=== PATIENT | female | born 1945 | race Caucasian/White ===

== ENCOUNTER 2022-02-13 15:49 | Emergency (ER) | payer MEDICARE, BC ==
[2022-02-13 16:42] LABS: BASOPHILS # (AUTO) 0.1 10^3/uL (0.0-0.1); BASOPHILS % (AUTO) 0.6 %; EOSINOPHILS % (AUTO) 0.2 %; HCT - HEMATOCRIT 43.8 % (37.0-47.0); HGB - HEMOGLOBIN 14.7 g/dL (12.0-16.0); LYMPHOCYTES % (AUTO) 10.1 %; MEAN CORPUSCULAR HEMOGLOBIN 30.8 pg (27.0-31.0); MEAN CORPUSCULAR HGB CONC 33.6 g/dL (32.0-36.0); MEAN CORPUSCULAR VOLUME 91.8 fL (81.0-99.0); MEAN PLATELET VOLUME 9.6 fL (7.9-10.8); MONOCYTES # (AUTO) 0.4 10^3/uL (0.0-1.0); MONOCYTES % (AUTO) 4.2 %; NEUTROPHILS # (AUTO) 8.5 10^3/uL (1.5-6.6); NEUTROPHILS % (AUTO) 84.4 %; PLT - PLATELET COUNT 176 10^3/uL (130-450); RED BLOOD COUNT 4.77 10^6/uL (4.20-5.40); RED CELL DISTRIBUTION WIDTH 13.2 % (12.0-15.0); WHITE BLOOD COUNT 10.1 x10^3/uL (4.8-10.8)
[2022-02-13 16:55] LABS: BILIRUBIN,URINE NEGATIVE (NEGATIVE); GLUCOSE, URINE (UA) NEGATIVE (NEGATIVE); KETONES,URINE (UA) 15 mg/dL (NEGATIVE); LEUKOCYTE ESTERASE, URINE NEGATIVE (NEGATIVE); NITRITE,URINE NEGATIVE (NEGATIVE); OCCULT BLOOD,URINE NEGATIVE (NEGATIVE); PH,URINE 8.5 PH (5.0-7.5); PROTEIN,URINE NEGATIVE (NEGATIVE); UROBILINOGEN,URINE 0.2 (NORMAL) E.U./dL (NORMAL)
[2022-02-13 16:55] LABS: ALBUMIN 4.4 g/dL (3.2-5.5); ALBUMIN/GLOBULIN RATIO 1.6 (1.0-2.2); BILIRUBIN,TOTAL 2.2 mg/dL (0.2-1.0); CALCIUM 10.1 mg/dL (8.5-10.3); CREATININE 0.7 mg/dL (0.4-1.0); TOTAL PROTEIN 7.1 g/dL (6.7-8.2)
[2022-02-13 16:59] LABS: CLARITY,URINE HAZY (CLEAR)
[2022-02-13 17:13] LABS: AMORPHOUS SEDIMENT,UR Marked /LPF; BACTERIA,URINE Rare /HPF (None Seen); RBC,URINE None Seen /HPF (0-5); SQUAMOUS EPITHELIAL CELL,UR RARE Squamous (<= Few); WBC,URINE 0-3 /HPF (0-5)
[2022-02-13] MEDS ORDERED: IOVERSOL 320 100 ML VIAL IVP ONE ×2 (17:34→20:24)
--- NOTE | 2022-02-13 18:00 | ED Physician Documentation ---
History of Present Illness - Stated complaint Stated Complaint: ABD PX - Chief complaint Chief Complaint: Abd Pain - History obtained from History obtained from: Patient - History of Present Illness Pain level max: 0 Pain level now: 0 - Additonal information Additional information: Patient is a 76-year-old female who presents to the emergency department with abdominal pain today. She states emesis x1, diarrhea x1. She states she has a history of recurrent bowel obstructions. She states she is concerned that she has a bowel obstruction. Her general surgeon is at [facility]. She states she was last admitted for a bowel obstruction in October. Has never needed surgery for her bowel obstructions. Review of Systems Constitutional: denies: Fever, Chills Nose: denies: Rhinorrhea / runny nose, Congestion Throat: denies: Sore throat Cardiac: denies: Chest pain / pressure, Palpitations Respiratory: denies: Dyspnea, Cough GI: reports: Abdominal Pain (crampy, lower), Vomiting, Diarrhea Skin: denies: Rash Musculoskeletal: denies: Neck pain, Back pain Neurologic: denies: Headache PD PAST MEDICAL HISTORY - Past Medical History Past Medical History: No Endocrine/Autoimmune: None - Past Surgical History General: Bowel surgery - Present Medications Home Medications: Ambulatory Orders Medication Instructions Recorded Confirmed Apixaban [Eliquis] 5 mg PO BID 11/22/21 11/22/21 Docusate Sodium 100Mg Capsule 100 mg PO DAILY 11/22/21 11/22/21 [Colace 100Mg Capsule] Mecobalamin [B12 Active] 1,000 mcg PO 11/22/21 - Allergies Allergies/Adverse Reactions: Allergies Allergy/AdvReac Type Severity Reaction Status Date / Time No Known Allergies Allergy Unknown Verified 02/13/22 16:09 - Living Situation Living Arrangement: reports: At home - Social History Smoking Status: Never smoker PD ED PE NORMAL - Vitals Vital signs reviewed: Yes - General General: Alert and oriented X 3, No acute distress - HEENT HEENT: PERRL, Moist mucous membranes - Neck Neck: Supple, no meningeal sign - Cardiac Cardiac: RRR, Strong equal pulses - Respiratory Respiratory: No respiratory distress, Clear bilaterally - Abdomen Abdomen: Normal bowel sounds, Soft, Non tender, Non distended - Derm Derm: Warm and dry - Extremities Extremities: No edema - Neuro Neuro: Alert and oriented X 3 - Psych Psych: Normal mood, Normal affect Results - Vitals Vitals: Vital Signs - 24 hr 02/13/22 02/13/22 02/13/22 16:09 16:14 18:14 Temperature 36.3 C L 36.3 C L Heart Rate 68 68 66 Respiratory 18 18 16 Rate Blood Pressure 157/82 H 157/82 H 165/95 H O2 Saturation 98 98 100 02/13/22 02/13/22 20:00 21:04 Temperature 36.5 C Heart Rate 64 62 Respiratory 16 16 Rate Blood Pressure 160/94 H 150/88 H O2 Saturation 99 100 Oxygen O2 Source Room air - Labs Labs: Laboratory Tests 02/13/22 02/13/22 02/13/22 16:25 16:37 16:37 WBC 10.1 RBC 4.77 Hgb 14.7 Hct 43.8 MCV 91.8 MCH 30.8 MCHC 33.6 RDW 13.2 Plt Count 176 MPV 9.6 Neut # (Auto) 8.5 H Lymph # (Auto) 1.0 L Grainger # (Auto) 0.4 Eos # (Auto) 0.0 Baso # (Auto) 0.1 Absolute Nucleated RBC 0.00 Nucleated RBC % 0.0 Sodium 134 L Potassium 4.0 Chloride 95 L Carbon Dioxide 29 Anion Gap 10.0 BUN 11 Creatinine 0.7 Estimated GFR (MDRD) 82 L Glucose 145 H Calcium 10.1 Total Bilirubin 2.2 H AST 19 ALT 16 Alkaline Phosphatase 39 L Total Protein 7.1 Albumin 4.4 Globulin 2.7 Albumin/Globulin Ratio 1.6 Lipase 25 Urine Color YELLOW Urine Clarity HAZY Urine pH 8.5 H Ur Specific [place] 1.015 Urine Protein NEGATIVE Urine Glucose (UA) NEGATIVE Urine Ketones 15 H Urine Occult Blood NEGATIVE Urine Nitrite NEGATIVE Urine Bilirubin NEGATIVE Urine Urobilinogen 0.2 (NORMAL) Ur Leukocyte Esterase NEGATIVE Urine RBC None Seen Urine WBC 0-3 Ur Squamous Epith Cells RARE Squamous Amorphous Sediment Marked Urine Bacteria Rare Ur Microscopic Review INDICATED Urine Culture Comments NOT INDICATED - Rads (name of study) CT abd/pelvis Radiology: Final report received, See rad report PD MEDICAL DECISION MAKING - ED course Complexity details: reviewed results, re-evaluated patient, considered differential, d/w patient ED course: 76-year-old female with what appears to be a gastroenteritis on CT. Does not appear consistent with bowel obstruction. Pain resolved in the emergency department. Tolerating p.o. without difficulty. We will have her follow-up with her doctor for further care. Patient is well-appearing, nontoxic. Afebrile. Lucent lesions in the osseous structures are consistent with her history of multiple myeloma. Patient counseled regarding signs and symptoms for which I believe and urgent re-evaluation would be necessary. Patient with good understanding of and agreement to plan and is comfortable going home at this time This document was made in part using voice recognition software. While efforts are made to proofread this document, sound alike and grammatical errors may occur. IMPRESSION: 1. Fluid distention throughout the proximal colon suggestive of a gastroenteritis. 2. Mild segment wall thickening in the sigmoid colon suggestive of a mild colitis. Colonic diverticulosis is present without definite acute diverticulitis. 3. Diffuse osteopenia with a severe compression fracture of the T10 vertebral body. 4. Numerous lucent lesions throughout the visualized osseous structures. The findings are nonspecific and may reflect mineralization or possible brown tumors but the differential includes a neoplastic process such as metastatic disease or myeloma. Recommend correlation clinically and consider further evaluation with a bone scan. Departure - Departure Disposition: 01 Home, Self Care Clinical Impression: Gastroenteritis Condition: Good Instructions: ED Gastroenteritis Viral Follow-Up: JUDI COLE MD [Primary Care Provider] - Comments: Please follow-up with your doctor for further care. There does not appear to be a bowel obstruction on your CT scan today. Drink plenty of fluids. These cases of enteritis/colitis usually resolve on their own and usually do not require any antibiotic therapy. They usually improve within [address] results: IMPRESSION: 1. Fluid distention throughout the proximal colon suggestive of a gastroenteritis. 2. Mild segment wall thickening in the sigmoid colon suggestive of a mild colitis. Colonic diverticulosis is present without definite acute diverticulitis. 3. Diffuse osteopenia with a severe compression fracture of the T10 vertebral body. 4. Numerous lucent lesions throughout the visualized osseous structures. The findings are nonspecific and may reflect mineralization or possible brown tumors but the differential includes a neoplastic process such as metastatic disease or myeloma. Recommend correlation clinically and consider further evaluation with a bone scan. Discharge Date/Time: 02/13/22 21:04
[2022-02-13] MEDS ORDERED: IOVERSOL 320 50 ML VIAL ONE (18:12)
[2022-02-13] MEDS ORDERED: IOVERSOL 320 50 ML VIAL PO ONE (20:24)
--- NOTE | 2022-02-13 20:28 | CT Report ---
PROCEDURE: Abdomen/Pelvis W INDICATIONS: lower abd pain CONTRAST: IV CONTRAST: Optiray 320 ml: 100 PO CONTRAST: Optiray 320 ml50 TECHNIQUE: After the administration of intravenous contrast, 5 mm thick sections acquired from the diaphragms to the symphysis. 5 mm thick coronal and sagittal reformats were acquired. For radiation dose reducti on, the following was used: automated exposure control, adjustment of mA and/or kV according to irais ent size. COMPARISON: None. FINDINGS: Image quality: Excellent. ABDOMEN: Lung bases: There is mild dependent atelectasis and scarring bilaterally. Heart size is normal. Solid organs: Evaluation of the liver demonstrates no focal hepatic lesions. Gallbladder appears wit hin normal limits without calcified gallstones. Biliary system is non dilated. The spleen is normal in size. Pancreas enhances normally without peripancreatic fat stranding or fluid collections. No ad renal nodules. Kidneys demonstrate no hydronephrosis. Peritoneum and bowel: Stomach and small bowel loops demonstrate normal wall thickness and caliber. No definite pericecal inflammatory changes to suggest acute appendicitis. There is mild fluid distentio n throughout the ascending, transverse, and proximal descending colon with scattered air-fluid levels suggestive of a gastroenteritis. There is colonic diverticulosis without definite acute diverticulit is. Mild segmental wall thickening is demonstrated in the sigmoid colon which may reflect a mild coli tis. No free fluid or air. Nodes and vessels: No retroperitoneal or mesenteric adenopathy by size criteria. Aorta and inferior vena cava are normal in size. Miscellaneous: No ventral hernias. PELVIS: Genitourinary: Bladder wall thickness is normal. Miscellaneous: No inguinal hernias or adenopathy. Bones: There is diffuse osteopenia. There is a severe compression fracture of the T10 vertebral body without retropulsed fragments in the spinal canal. Multiple lucent lesions are demonstrated throughou t the visualized lower thoracic and lumbar spine as well as the bony pelvis. There are also lucent le sions within the proximal femurs including the femoral necks. IMPRESSION: 1. Fluid distention throughout the proximal colon suggestive of a gastroenteritis. 2. Mild segment wall thickening in the sigmoid colon suggestive of a mild colitis. Colonic diverticul osis is present without definite acute diverticulitis. 3. Diffuse osteopenia with a severe compression fracture of the T10 vertebral body. 4. Numerous lucent lesions throughout the visualized osseous structures. The findings are nonspecific and may reflect mineralization or possible brown tumors but the differential includes a neoplastic p rocess such as metastatic disease or myeloma. Recommend correlation clinically and consider further e valuation with a bone scan. Reviewed by: Arnie Tripp MD on 02/13/2022 8:26 PM PDT Approved by: Arnie Tripp MD on 02/13/2022 8:26 PM PDT Station ID: [id number]
[2022-02-13 21:05] VITALS: BP 150/88
== END 2022-02-13 21:04 | disposition home or self-care (01) ==
LOC: ED 15:49
DX: K52.9 Noninfective gastroenteritis and colitis, unspecified (principal)
CPT/HCPCS: 36415; 74177; 80053; 81001; 83690; 85025; 99282; 99284; Q9967; 81003; 87086